=== PATIENT | female | born 1965 | race Caucasian/White ===

== ENCOUNTER 2017-04-06 07:35 | Day surgery (SDC) | payer MEDICAID ==
[~2017-04-06 07:35] MED LIST: Bupivacaine 0.5%/EPINEPHrine 1:200,000 50 ML MDV ONE
[2017-04-06] MEDS ORDERED: Sodium Chloride 0.9% 1,000 ML IV SCH (08:00)
[2017-04-06] MEDS ORDERED: Midazolam 1 MG/ML 2 ML SDV ONE (08:59)
[2017-04-06] MEDS ORDERED: fentaNYL 100 MCG/2 ML SDV ONE (08:59)
[2017-04-06] MEDS ORDERED: Propofol 200 MG/20 ML SDV ONE ×2 (08:59→09:47)
[2017-04-06] MEDS ORDERED: Bacitracin Oint 1 GM U/D Packet ONE (10:07)
[2017-04-06 11:21] VITALS: BP 109/65
--- NOTE | 2017-04-07 08:03 | OR ---
DATE OF PROCEDURE: 04/06/2017 PROCEDURE PERFORMED: Excision, skin lesion, left buttock. COMPLICATIONS: None. PAINT DEPARTMENT SUPERVISOR: None. ANESTHESIA: MAC/local. INDICATIONS: This is a 52-year-old female with a recurring infection of her left buttock associated with a pit in the skin, most likely a cyst. PROCEDURE IN DETAIL: The patient was placed in prone position. The area was marked by the patient preoperatively. This was anesthetized with lidocaine and a skin excision of 1.3 cm was made. An elliptical incision was made to excise the area. This was thoroughly irrigated and closed with 3-0 Vicryl and 4-0 Prolene in interrupted and running fashion. Dressings were applied. The patient tolerated the procedure well. Hong Cat MD /[id number]
--- NOTE | 2017-04-15 13:35 | OR ---
DATE OF PROCEDURE: 04/06/2017 ADDENDUM: PREOPERATIVE DIAGNOSIS: Infected gluteal cyst. POSTOPERATIVE DIAGNOSIS: Infected gluteal cyst. Hong Cat MD /[id number]
== END 2017-04-06 11:45 | disposition home or self-care (01) ==
LOC: JP.SDS 07:35
PROVIDERS: ATTEND Surgery
DX: L02.31 Cutaneous abscess of buttock (principal); F32.9 Major depressive disorder, single episode, unspecified; Z88.1 Allergy status to other antibiotic agents; F17.210 Nicotine dependence, cigarettes, uncomplicated; Z98.890 Other specified postprocedural states; Z90.49 Acquired absence of other specified parts of digestive tract; Z98.51 Tubal ligation status
CPT/HCPCS: 11402; 12031; 88304; J2250; J2704; J3010; J7040

== ENCOUNTER 2017-06-22 06:28 | Day surgery (SDC) | payer MEDICAID ==
[2017-06-22] MEDS ORDERED: Bupivacaine 0.5% 50 ML MDV ONE ×2 (06:49→07:37)
[2017-06-22] MEDS ORDERED: Lactated Ringers 1,000 ML IV SCH (07:15)
[2017-06-22] MEDS ORDERED: ceFAZolin 1 GM in Premix Bag 1 BAG IV ONE (07:30)
[2017-06-22] MEDS ORDERED: methylPREDNISolone Acetate 40 MG/ML SDV ONE (07:37)
[2017-06-22] MEDS ORDERED: fentaNYL 100 MCG/2 ML SDV ONE (08:10)
[2017-06-22] MEDS ORDERED: Propofol 200 MG/20 ML SDV ONE (08:10)
[2017-06-22] MEDS ORDERED: Midazolam 1 MG/ML 2 ML SDV ONE (08:10)
[2017-06-22 10:24] VITALS: BP 116/67
--- NOTE | 2017-06-22 13:32 | OR ---
DATE OF PROCEDURE: 06/22/2017 PREOPERATIVE DIAGNOSES: 1. Right carpal tunnel syndrome. 2. Right tennis elbow. POSTOPERATIVE DIAGNOSES: 1. Right carpal tunnel syndrome. 2. Right tennis elbow. PROCEDURE: 1. Release right transverse carpal ligament. 2. Injection, right tennis elbow. ESTIMATED BLOOD LOSS: Minimal. COMPLICATIONS: No complications. INDICATIONS: Tejal is a 52-year-old, who had presented to the clinic, having had numbness, tingling, painful sensation of the median nerve territory of her right hand. This was proven with the EMG, and since she had failed conservative treatment, it was decided to proceed with a release of right transverse carpal ligament. She was also known with a tennis elbow on her right side and decided to do, at the same OR time, an injection of her right tennis elbow. I discussed with the patient the possible risks, benefits, alternatives, and complications of surgery. The nature of the surgery was explained, possible complications include but not excluded to infection, phlebitis, nerve damage, vascular damage, possible reoccurrence of carpal tunnel, persistent pain, stiffness, weakness, pulmonary emboli, stroke, transfusion, heart attack, medical complication, possible , and I did explain the rehabilitation program. All questions were answered and I had informed consent. DESCRIPTION OF PROCEDURE: The patient was taken to the OR. I did my markings at the right wrist, and she did receive antibiotics preop. The PRE PRESS MANAGER proceeded with slight IV sedation; a tourniquet was applied at the right upper extremity in proximity. Sterile prep and dressing were done in the usual manner at the wrist and elbow. Time-out was taken to identify the correct surgical site. I did a local block with Marcaine 0.25 plain, subcutaneous tissue, down to the transverse carpal ligament of her right wrist. The arm was elevated, tourniquet was raised to 250 mmHg. An incision was done with the scalpel, starting at the wrist crease, going ulnar to the thenar muscle belly, an incision of about 3 cm. Dissection was carried down to the subcutaneous tissue, down to the transverse carpal ligament in which a slight opening is done with Anna scissors proximally, making sure not to violate the deep structures, and afterwards the groove adapter was passed, then again the transverse carpal ligament and a gradual release was done with the scalpel, which went well. The nerve was intact. Very slight inflammation at the compression site. The whole site was washed with saline. The skin was closed with nylon 3-0 simple sutures. Afterwards, I have injected the lateral epicondyle of her right elbow with 1 mL of Marcaine and 40 mg of Depo-Medrol, which she tolerated well. A sterile dressing is applied at the wrist. Tourniquet was released. Blood loss was minimum. There was no complication. The patient tolerated well the operation, and she is sent to recovery room in good condition. Bernardo Scott MD /[id number]
== END 2017-06-22 10:42 | disposition home or self-care (01) ==
LOC: JP.SDS 06:28
PROVIDERS: ATTEND Orthopaedic Surgery
DX: G56.01 Carpal tunnel syndrome, right upper limb (principal); M77.11 Lateral epicondylitis, right elbow; E11.9 Type 2 diabetes mellitus without complications; E78.5 Hyperlipidemia, unspecified; F32.9 Major depressive disorder, single episode, unspecified; I10 Essential (primary) hypertension; Z79.82 Long term (current) use of aspirin; Z79.899 Other long term (current) drug therapy; Z88.1 Allergy status to other antibiotic agents
CPT/HCPCS: 20550; 64721; J0690; J1030; J2250; J2704; J3010; J7120

== ENCOUNTER 2021-08-22 06:51 | Day surgery (SDC) | payer MEDICAID ==
[~2021-08-22 06:51] MED LIST changes: -Bupivacaine 0.5%/EPINEPHrine 1:200,000 50 ML MDV ONE; +Lidocaine 1% with EPINEPHrine 1:100,000 50 ML MDV ONE; +Sodium Chloride 0.9% 10 ML ONE; +Sodium Tetradecyl Sulfate 1% 20 MG/2 ML SDV ONE
[2021-08-22] MEDS ORDERED: Sodium Chloride 0.9% 1,000 ML IV SCH (07:00)
[2021-08-22] MEDS ORDERED: Propofol 200 MG/20 ML SDV ONE ×2 (07:28→08:12)
[2021-08-22] MEDS ORDERED: Midazolam 1 MG/ML 2 ML SDV ONE (07:28)
[2021-08-22] MEDS ORDERED: fentaNYL 100 MCG/2 ML SDV ONE ×2 (07:28→08:04)
[2021-08-22] MEDS ORDERED: Lidocaine 1% w/EPINEPHrine 50 ML, Sodium Bicarbonate 5 MEQ in Sodium Chloride 0.9% 950 ML INJECT ONE (07:45)
[2021-08-22 09:22] VITALS: BP 112/57; PULSE 65
== END 2021-08-22 09:30 | disposition home or self-care (01) ==
LOC: JP.SDS 06:51
PROVIDERS: ATTEND Surgery
DX: I87.2 Venous insufficiency (chronic) (peripheral) (principal); I80.9 Phlebitis and thrombophlebitis of unspecified site; F17.200 Nicotine dependence, unspecified, uncomplicated; J44.9 Chronic obstructive pulmonary disease, unspecified; E78.5 Hyperlipidemia, unspecified; Z88.1 Allergy status to other antibiotic agents
CPT/HCPCS: J1642; J2250; J2704; J3010; J3490; J7030